=== PATIENT | female | born 1975 | race Caucasian/White ===

== ENCOUNTER → 2016-09-05 | Outpatient (CLI) | payer BC, MEDICAID ==
[2016-09-05 12:16] LABS: ABSOLUTE BASOPHILS # (AUTO) 0.1 10^3/uL (0.0-0.2); ABSOLUTE EOSINOPHILS # (AUTO) 0.6 10^3/uL (0.0-0.6); ABSOLUTE MONOCYTES (AUTO) 0.5 10^3/uL (0.1-1.4); ABSOLUTE NEUT (AUTO) 7.3 10^3/uL (1.7-8.2); BASOPHILS % (AUTO) 0.5 % (0-2); EOSINOPHILS % (AUTO) 5.1 % (0-6); HEMATOCRIT 36.1 % (36.0-47.0); HEMOGLOBIN 12.3 g/dL (12.0-15.5); HGB HCT DIFFERENCE 0.8; LYMPHOCYTES % (AUTO) 26.1 % (13-45); MEAN CORPUSCULAR HEMOGLOBIN 27.6 pg (27.0-33.4); MEAN CORPUSCULAR VOLUME 81 fl (80-97); MONOCYTES % (AUTO) 4.3 % (3-13); RED BLOOD COUNT 4.44 10^6/uL (3.72-5.28); RED CELL DISTRIBUTION WIDTH 16.3 % (11.5-14.0); WHITE BLOOD COUNT 11.3 10^3/uL (4.0-10.5)
[2016-09-05 12:41] LABS: C-REACTIVE PROTEIN 9.1 mg/L (<10.0); URIC ACID 5.2 mg/dL (2.5-7.0)
[2016-09-05 12:58] LABS: ERYTHROCYTE SEDIMENTATION RATE 28 mm/hr (0-20)
[2016-09-09 07:22] LABS: CYCLIC CITRUL PEPTIDE IGG/A AB 15 units (0-19)
== END ==
LOC: OD 11:21
PROVIDERS: ATTEND Physician Assistant
DX: M79.642 Pain in left hand (principal); M79.89 Other specified soft tissue disorders
CPT/HCPCS: 36415; 84443; 84550; 85025; 85652; 86038; 86140; 86200; 86430

== ENCOUNTER → 2017-07-20 | Outpatient (CLI) | payer OTHER, BC ==
--- NOTE | 2017-07-21 08:47 | RADIOLOGY REPORT (SQ) ---
EXAM DESCRIPTION: MRI RT UPPER JOINT WITHOUT COMPLETED DATE/TIME: 07/20/2017 6:26 pm REASON FOR STUDY: UNSPECIFIED ROTATOR CUFF TEAR OR RUPTURE OF RIGHT SHOULDER, NOT SPECIFIED T M75.10 1 UNSP ROTATR-CUFF TEAR/RUPTR OF RIGHT SHOULDER, NOT T COMPARISON: None. TECHNIQUE: Right shoulder images acquired and stored on PACS. Multiplanar imaging to include fat sen sitive sequences such as T1, water sensitive sequences such as FST2/STIR, cartilage sensitive sequenc es such as FSPD/gradient-echo sequences. LIMITATIONS: None. FINDINGS: BONE MARROW AND CORTEX: No worrisome bone lesions or marrow replacement. No occult fractur es. JOINT OR BURSAL EFFUSION: No significant joint or bursal fluid. No suggestion of loose bodies. GLENO-HUMERAL ARTICULATION: Normal articulation. No subluxation. No cystic change. No osteophytes or cartilage loss. ACROMION AND AC JOINT: No down-sloping or distal spur. Sub-acromial space maintained. No significa nt AC joint arthropathy. ROTATOR CUFF AND INTERVAL: Mild bursal surface fraying along anterior supraspinatus insertion. Minim al signal also along infraspinatus insertion posteriorly. No high-grade partial or full thickness cu ff tear evident, however. No cuff muscle atrophy. Probable mild scar in the rotator interval. This can be seen with adhesive capsulitis. LABRUM AND BICEPS LABRAL COMPLEX: No evidence of significant slap tear or biceps pathology. REMAINDER OF LABRUM AND IGHL : No overt tear or paralabral cyst formation. PERIARTICULAR AND ADJACENT SOFT TISSUES: No masses or abnormal nodes. OTHER: No other significant finding. IMPRESSION: 1. Minimal cuff disease. No high-grade partial or full-thickness tear evident. 2. Fin dings which may reflect adhesive capsulitis. TECHNICAL DOCUMENTATION: JOB ID: [id number] [employer]- All Rights Reserved
== END ==
LOC: RAD 17:34
PROVIDERS: ATTEND Physician Assistant
DX: M75.101 Unspecified rotator cuff tear or rupture of right shoulder, not specified as traumatic (principal)

== ENCOUNTER 2019-03-23 17:08 | Emergency (ER) | payer BC, MEDICAID, OTHER ==
--- NOTE | 2019-03-23 17:38 | ER Document Report ---
ED Medical Screen (RME) - General Chief Complaint: Painful Cough Stated Complaint: COUGH Time Seen by Provider: 03/23/19 17:37 Primary Care Provider: JACQUELYN JENKINS PA [Primary Care Provider] - Follow up as needed Mode of Arrival: Ambulatory Information source: Patient Notes: 43-year-old female presented to ED for complaint of upper back pain worse on the right especially when she breathes her cough. She states she is short of breath. She states she does have a history of pneumonia reflux cholesterol. She is also has a history of arthritis. She still smokes a pack a day. She states that her chest and back have been hurting since Thursday when she breathes her cough it feels very tight. Is alert and oriented respirations regular and unlabored she does have tightness to the right side of her lungs. I have greeted and performed a rapid initial assessment of this patient. A comprehensive ED assessment and evaluation of the patient, analysis of test re sults and completion of medical decision making process will be conducted by an additional ED providers. TRAVEL OUTSIDE OF THE [place] IN LAST 30 DAYS: No - Related Data Allergies/Adverse Reactions: egg [Egg] Allergy (Verified 03/23/19 17:35) Home Medications: mobic, clinda, simvastatin, prilosec, probiotic Past Medical History - Past Medical History Cardiac Medical History: Reports: Hx Hypercholesterolemia, Hx Hypertension Neurological Medical History: Reports: Hx Migraine GI Medical History: Reports: Hx Gastroesophageal Reflux Disease Musculoskeltal Medical History: Reports Hx Fibromyalgia Psychiatric Medical History: Reports: Hx Anxiety, Hx Depression Past Surgical History: Reports: Hx Section - x1, Hx Urinary Tract Surgery - bladder tack - Immunizations Hx Diphtheria, Pertussis, Tetanus Vaccination: Yes Doctor's Discharge - Discharge Referrals: JACQUELYN JENKINS PA [Primary Care Provider] - Follow up as needed
--- NOTE | 2019-03-23 18:00 | RADIOLOGY REPORT (SQ) ---
EXAM DESCRIPTION: CHEST 2 VIEWS COMPLETED DATE/TIME: 03/23/2019 5:52 pm REASON FOR STUDY: cough pain upper back and chest when deep breath COMPARISON: 04/24/2015 EXAM PARAMETERS: NUMBER OF VIEWS: two views TECHNIQUE: Digital Frontal and Lateral radiographic views of the chest acquired. RADIATION DOSE: NA LIMITATIONS: none FINDINGS: LUNGS AND PLEURA: No opacities, masses or pneumothorax. No pleural effusion. MEDIASTINUM AND HILAR STRUCTURES: No masses or contour abnormalities. HEART AND VASCULAR STRUCTURES: Heart normal size. No evidence for failure. BONES: No acute findings. HARDWARE: None in the chest. OTHER: No other significant finding. IMPRESSION: NO ACUTE RADIOGRAPHIC FINDING IN THE CHEST. TECHNICAL DOCUMENTATION: JOB ID: [id number] [employer] All Rights Reserved Reading location - IP/workstation name: [email or web address]
[2019-03-23 18:35] LABS: ABSOLUTE BASOPHILS # (AUTO) 0.1 10^3/uL (0.0-0.2); ABSOLUTE EOSINOPHILS # (AUTO) 0.9 10^3/uL (0.0-0.6); ABSOLUTE LYMPHOCYTES (AUTO) 3.5 10^3/uL (0.5-4.7); ABSOLUTE MONOCYTES (AUTO) 0.8 10^3/uL (0.1-1.4); ABSOLUTE NEUT (AUTO) 5.9 10^3/uL (1.7-8.2); BASOPHILS % (AUTO) 1.3 % (0-2); EOSINOPHILS % (AUTO) 8.2 % (0-6); HEMATOCRIT 41.9 % (36.0-47.0); HEMOGLOBIN 14.6 g/dL (12.0-15.5); LYMPHOCYTES % (AUTO) 30.7 % (13-45); MEAN CORPUSCULAR HEMOGLOBIN 30.9 pg (27.0-33.4); MEAN CORPUSCULAR HGB CONC 34.8 g/dL (32.0-36.0); MEAN CORPUSCULAR VOLUME 89 fl (80-97); MONOCYTES % (AUTO) 7.5 % (3-13); PLATELET COUNT 317 10^3/uL (150-450); RED BLOOD COUNT 4.73 10^6/uL (3.72-5.28); RED CELL DISTRIBUTION WIDTH 14.1 % (11.5-14.0); SEGMENTED NEUTROPHILS % (AUTO) 52.3 % (42-78); TOTAL CELLS COUNTED % (AUTO) 100 %; WHITE BLOOD COUNT 11.3 10^3/uL (4.0-10.5)
[2019-03-23 19:03] LABS: ALBUMIN 4.7 g/dL (3.5-5.0); ALKALINE PHOSPHATASE 77 U/L (38-126); ANION GAP 10 (5-19); ASPARTATE AMINO TRANSFERASE 36 U/L (14-36); BILIRUBIN,DIRECT 0.2 mg/dL (0.0-0.4); BILIRUBIN,TOTAL 0.3 mg/dL (0.2-1.3); BLOOD UREA NITROGEN 6 mg/dL (7-20); CALCIUM 9.7 mg/dL (8.4-10.2); CARBON DIOXIDE 26 mmol/L (22-30); CHLORIDE 103 mmol/L (98-107); CREATINE KINASE 83 U/L (30-135); GLUCOSE 98 mg/dL (75-110); POTASSIUM 4.5 mmol/L (3.6-5.0); TOTAL PROTEIN 7.8 g/dL (6.3-8.2)
[2019-03-23 19:14] LABS: CREATINE KINASE MB 0.44 ng/mL (<4.55)
[2019-03-23 19:16] LABS: TROPONIN I < 0.012 ng/mL
[2019-03-23 22:16] LABS: APPEARANCE,URINE SLIGHTLY-CLOUDY; BILIRUBIN,URINE NEGATIVE (NEGATIVE); COLOR,URINE YELLOW; GLUCOSE, URINE NEGATIVE (NEGATIVE); KETONES,URINE NEGATIVE (NEGATIVE); LEUKOCYTE ESTERASE,URINE NEGATIVE (NEGATIVE); NITRITE,URINE NEGATIVE (NEGATIVE); PROTEIN,URINE NEGATIVE (NEGATIVE); URINE SPECIFIC GRAVITY 1.009; UROBILINOGEN,URINE NEGATIVE mg/dL (<2.0)
--- NOTE | 2019-03-24 00:45 | ER Document Report ---
ED Respiratory Problem - General Chief Complaint: Painful Cough Stated Complaint: COUGH Time Seen by Provider: 03/24/19 00:45 Primary Care Provider: JACQUELYN JENKINS PA [NO LOCAL MD] - Follow up as needed Mode of Arrival: Ambulatory Information source: Patient Notes: HISTORY OF PRESENT ILLNESS: Patient is a 43-year-old female with a past medical history of smoking and hypertension who presents with several days of cough and congestion. Patient reports that she has had pneumonia in the past and it felt similar, however she denies fevers or chills. Does report smoking 1 pack of cigarettes per day. Location: Chest Onset: Several days ago Alleviation: None Provocation: Cough Quality: Congestion Radiation: None Severity: Mild to moderate Timing: Constant History of CAD: None Associated symptoms: Denies fever chills, does report nasal congestion with runny nose, no shortness of breath REVIEW OF SYSTEMS: CONSTITUTIONAL : Denies fever or chills, no sweats. Denies recent illness. EENT: Denies eye, ear, throat, or mouth pain or symptoms. Denies nasal or sinus congestion. CARDIOVASCULAR: Denies chest pain. Denies swelling of the legs. RESPIRATORY: Positive for cough, cold, and chest congestion. Denies shortness of breath or difficulty breathing. Denies wheezing. GASTROINTESTINAL: Denies abdominal pain. Denies nausea, vomiting, or diarrhea. Denies constipation. GENITOURINARY: Denies difficulty urinating, painful urination, burning, frequency, or blood in urine. FEMALE GENITOURINARY: Denies vaginal bleeding, abnormal or irregular periods. MUSCULOSKELETAL: Denies neck or back pain or joint pain or swelling. SKIN: Denies rash or skin lesions. HEMATOLOGIC : Denies easy bruising or bleeding. LYMPHATIC: Denies swollen, enlarged glands. NEUROLOGICAL: Denies altered mental status or loss of consciousness. Denies headache. Denies weakness or paralysis or loss of use of either side. Denies problems with gait or speech. Denies sensory or motor loss. PSYCHIATRIC: Denies anxiety or stress or depression. All other systems reviewed and negative. PHYSICAL EXAMINATION: GENERAL: Well-appearing, well-nourished and in no acute distress. HEAD: Atraumatic, normocephalic. No scalp deformity, depression, or crepitance. EYES: Pupils are 3 mm and equal/round/reactive to light, extraocular movements intact, sclera anicteric, conjunctiva are normal. ENT: Nares patent bilaterally, oropharynx. Moist mucous membranes. No tonsil hypertrophy. NECK: Normal range of motion, supple without lymphadenopathy. LUNGS: Breath sounds present, equal, and clear to auscultation bilaterally. No wheezes, rales, or rhonchi. HEART: Regular rate and rhythm without murmurs, rubs, or gallops. 2+ peripheral pulses. Normal capillary refill. ABDOMEN: Soft, nontender, nondistended. Normoactive bowel sounds. No guarding, no rebound. No masses appreciated. BACK: Normal contour, no midline tenderness. Rectal exam deferred. GENITAL/PELVIC: Deferred. EXTREMITIES: Normal range of motion, no pitting or edema. No cyanosis. NEUROLOGICAL: No focal neurological deficits. Moves all extremities spontaneously and on command. PSYCH: Normal mood, normal affect. No suicidal thoughts/ideations. No homicidal thoughts/ideations. No hallucinations. SKIN: Warm, dry, normal turgor, no rashes or lesions noted. ASSESSMENT AND PLAN: This patient is a 43-year-old female who presents with several days of cough congestion, most likely viral syndrome versus acute bronchitis versus pneumonia. 1. Will obtain labs, chest x-ray, and reassess. 2. Will give intramuscular Decadron. TRAVEL OUTSIDE OF THE [place] IN LAST 30 DAYS: No - HPI Patient complains to provider of: Cough Onset: Last week Duration: Continuous Initiating Event: URI Quality of pain: Achy Severity: Mild Pain Level: Denies Context: Smoker Short of Breath: Mild Cough: Nonproductive Sputum amount: None Associated symptoms: Congestion, Sinus pain/pressure Similar symptoms previously: No Recently seen / treated by doctor: No - Related Data Allergies/Adverse Reactions: egg [Egg] Allergy (Verified 03/23/19 17:35) Home Medications: mobic, clinda, simvastatin, prilosec, probiotic Past Medical History - General Information source: Patient - Social History Smoking Status: Current Every Day Smoker Chew tobacco use (# tins/day): No Frequency of alcohol use: None Drug Abuse: None Lives with: Alone Family History: CAD, Other Patient has suicidal ideation: No Patient has homicidal ideation: No - Past Medical History Cardiac Medical History: Reports: Hx Hypercholesterolemia, Hx Hypertension Pulmonary Medical History: Reports: None EENT Medical History: Reports: None Neurological Medical History: Reports: Hx Migraine Endocrine Medical History: Reports: None Renal/ Medical History: Reports: None Malignancy Medical History: Reports: None GI Medical History: Reports: Hx Gastroesophageal Reflux Disease Musculoskeletal Medical History: Reports Hx Fibromyalgia Skin Medical History: Reports None Psychiatric Medical History: Reports: Hx Anxiety, Hx Depression Traumatic Medical History: Reports: None Infectious Medical History: Reports: None Past Surgical History: Reports: Hx Section - x1, Hx Urinary Tract Surgery - bladder tack - Immunizations Hx Diphtheria, Pertussis, Tetanus Vaccination: Yes Hx Pneumococcal Vaccination: 06/15/00 Review of Systems - Review of Systems Constitutional: No symptoms reported EENT: See HPI, Nose congestion Cardiovascular: No symptoms reported Respiratory: See HPI, Cough Gastrointestinal: No symptoms reported Genitourinary: No symptoms reported Female Genitourinary: No symptoms reported Musculoskeletal: No symptoms reported Skin: No symptoms reported Hematologic/Lymphatic: No symptoms reported Neurological/Psychological: No symptoms reported -: Yes All other systems reviewed and negative Physical Exam - Vital signs Vitals: Temp Pulse Resp BP Pulse Ox 97.6 F 77 20 173/96 H 99 03/23/19 17:34 03/23/19 17:34 03/23/19 17:34 03/23/19 17:34 03/23/19 17:34 Interpretation: Normal Course - Re-evaluation Re-evalutation: 03/24/19 02:21 Chest x-ray and labs are negative. Will discharge the patient home with strict return precautions and follow-up with primary care. All results were explained to and discussed with the patient, and all questions addressed and answered. The patient voices both understanding and agreeing with the plan. - Vital Signs Vital signs: Temp Pulse Resp BP Pulse Ox 97.8 F 59 L 15 148/93 H 99 03/24/19 02:30 03/24/19 02:30 03/24/19 02:30 03/24/19 02:30 03/24/19 02:30 - Laboratory Result Diagrams: 03/23/19 18:15 03/23/19 18:15 Laboratory results interpreted by me: 03/23/19 03/23/19 03/23/19 18:15 18:15 18:15 WBC 11.3 H RDW 14.1 H Eos % (Auto) 8.2 H Absolute Eos (auto) 0.9 H BUN 6 L Urine Blood SMALL H - Diagnostic Test Radiology reviewed: Image reviewed, Reports reviewed Discharge - Discharge Clinical Impression: Acute viral syndrome Condition: Good Disposition: HOME, SELF-CARE Instructions: Viral Syndrome ([facility]) Additional Instructions: You have been evaluated in the Emergency Department for cough and congestion. While here, you had a normal chest x-ray and it is now safe to be discharged home. Please follow-up with your primary physician as instructed in one week to be rechecked. Return to the Emergency Department if you experience chest pain, difficulty breathing, high fevers, or any other concerning symptoms. Prescriptions: Codeine Phosphate/Guaifenesin [Cheratussin AC Syrup] 10 ml PO Q6HP PRN #200 liquid PRN Reason: Cough Azithromycin [Zithromax 250 mg Tablet] 250 mg PO ASDIR PRN #6 tablet PRN Reason: Referrals: JACQUELYN JENKINS PA [NO LOCAL MD] - Follow up as needed Print Language: Hungarian
[2019-03-24] MEDS ORDERED: DEXAMETHASONE SOD PHOS INJ 10 MG/1 ML VIAL IM ONE (02:04)
[2019-03-24 02:41] VITALS: BP 148/93
== END 2019-03-24 02:30 | disposition home or self-care (01) ==
LOC: ER 17:08
DX: B34.9 Viral infection, unspecified (principal); R05 Cough; F17.200 Nicotine dependence, unspecified, uncomplicated; I10 Essential (primary) hypertension; E78.00 Pure hypercholesterolemia, unspecified; Z91.012 Allergy to eggs
CPT/HCPCS: 36415; 82553; 82550; 83690; 85025; 80053; 81001; 84484; 71046; J1100; 96372; 99283